=== PATIENT | male | born 1995 | race Caucasian/White ===

== ENCOUNTER 2018-11-11 09:13 | Emergency (ER) | payer BC ==
[2018-11-11] MEDS ORDERED: Ondansetron 4 MG Tab.DIS PO ONE (09:58)
[2018-11-11] MEDS ORDERED: Alum Hydrox/Mag Hydrox/Simeth 30 ML, Lidocaine 2% 15 ML PO ONE ×2 (09:59)
[2018-11-11] MEDS ORDERED: Famotidine 20 MG Tab PO ONE (09:59)
--- NOTE | 2018-11-11 10:06 | EDM.PDOC ---
ED HPI GENERAL MEDICAL PROBLEM - General Chief Complaint: Abdominal Pain Stated Complaint: VOMITING BLOOD Time Seen by Provider: 11/11/18 09:40 Source of Information: Reports: Patient History Limitations: Reports: No Limitations - History of Present Illness INITIAL COMMENTS - FREE TEXT/NARRATIVE: 23 yo M with h/o acid reflux, HTN, hemorrhoids comes in today with complaints of dull RUQ abdominal pain with vomiting "straight blood" this AM. He states he has been out drinking with his friends for the past 3 days, about 2-4 drinks per night. In the past he's had similar symptoms "just not as much blood" every time he drinks. He states he drinks "socially", about 2-4x/week, 2-4 drinks at a time. He has chronic gastric reflux, takes TUMS daily, but has not been diagnosed with GERD as he has not had an endoscopy. Was told in the past he " may have an ulcer" but he never followed up. He states his pain is worse with alcohol and when he eats. He describes the pain as a throbbing RUQ pain that radiates to the epigastric region. He also c/o sore throat and cough (chronic). He denies F/C, diarrhea (did have for 2 days recently), hematochezia, black tarry stool, or other GI/ complaints. He smokes 1/2-1ppd x14 years. Denies illicit drug use. No previous abdominal surgeries. Currently does not have a PCP, would like a recommendation. Abdomen Pain Score (Numeric/FACES): 5 - Related Data Allergies Allergy/AdvReac Type Severity Reaction Status Date / Time No Known Allergies Allergy Verified 11/11/18 09:40 Home Meds: Home Meds Omeprazole 20 mg PO DAILY #14 tab.rap 11/11/18 [Rx] Past Medical History - Past Health History Medical/Surgical History: Denies Medical/Surgical History Social & Family History - Tobacco Use Smoking Status *Q: Current Every Day Smoker Years of Tobacco use: 5 Packs/Tins Daily: 0.7 - Caffeine Use Caffeine Use: Reports: Coffee, Energy Drinks, Soda, Tea - Recreational Drug Use Recreational Drug Use: No ED ROS GENERAL - Review of Systems Review Of Systems: See Below Constitutional: Reports: No Symptoms. Denies: Fever, Chills HEENT: Reports: Glasses Respiratory: Reports: Cough (chronic "smoker's cough") Cardiovascular: Reports: Blood Pressure Problem. Denies: Chest Pain Endocrine: Reports: No Symptoms GI/Abdominal: Reports: Abdominal Pain (RUQ dull, throbbing radiates to epigastric region), Hematemesis, Nausea, Vomiting. Denies: Black Stool, Bloody Stool, Diarrhea, Decreased Appetite, Hematochezia, Melena : Reports: No Symptoms Musculoskeletal: Reports: No Symptoms Skin: Reports: No Symptoms Neurological: Reports: No Symptoms. Denies: Dizziness Psychiatric: Reports: No Symptoms Hematologic/Lymphatic: Reports: No Symptoms Immunologic: Reports: No Symptoms ED EXAM, GI/ABD - Physical Exam Exam: See Below Exam Limited By: No Limitations General Appearance: Alert, WD/WN, Mild Distress Eyes: Bilateral: Normal Appearance, EOMI Ears: Normal External Exam, Hearing Grossly Normal Nose: Normal Inspection, Normal Mucosa, No Blood Throat/Mouth: Normal Lips, Normal Teeth, Normal Gums, Normal Oropharynx, Normal Voice, No Airway Compromise, Inflammation, Other (some erythema present) Head: Atraumatic, Normocephalic Neck: Normal Inspection, Supple, Non-Tender, Full Range of Motion Respiratory/Chest: No Respiratory Distress, Lungs Clear, Normal Breath Sounds, No Accessory Muscle Use, Chest Non-Tender Cardiovascular: Regular Rate, Rhythm, No Edema, No Gallop, No JVD, No Murmur GI/Abdominal Exam: Soft, Non-Tender, No Organomegaly, No Distention, No Abnormal Bruit, No Mass, Pelvis Stable, Abnormal Bowel Sounds (hyperactive) Back Exam: Normal Inspection, Full Range of Motion Psychiatric: Normal Affect, Normal Mood Skin Exam: Warm, Dry, Intact, Normal Color, No Rash Course - Vital Signs Last Recorded V/S: Last Vital Signs Temp 99.0 F 11/11/18 09:35 Pulse 87 11/11/18 09:35 Resp 16 11/11/18 09:35 BP 166/105 H 11/11/18 09:35 Pulse Ox 97 11/11/18 09:35 - Orders/Labs/Meds Labs: Laboratory Tests 11/11/18 11/11/18 11/11/18 Range/Units 10:34 10:34 10:34 WBC 14.41 H (4.23-9.07) K/mm3 RBC 5.61 (4.63-6.08) M/mm3 Hgb 18.3 H (13.7-17.5) gm/L Hct 51.0 (40.1-51.0) % MCV 90.9 (79.0-92.2) fl MCH 32.6 H (25.7-32.2) pg MCHC 35.9 H (32.2-35.5) g/dl RDW Std Deviation 45.2 H (35.1-43.9) fL Plt Count 268 (163-337) K/mm3 MPV 10.4 (9.4-12.3) fl Neut % (Auto) 81.5 H (34.0-67.9) % Lymph % (Auto) 12.5 L (21.8-53.1) % [place] % (Auto) 4.7 L (5.3-12.2) % Eos % (Auto) 0.1 L (0.8-7.0) Baso % (Auto) 0.4 (0.1-1.2) % Neut # (Auto) 11.75 H (1.78-5.38) K/mm3 Lymph # (Auto) 1.80 (1.32-3.57) K/mm3 [place] # (Auto) 0.68 (0.30-0.82) K/mm3 Eos # (Auto) 0.01 L (0.04-0.54) K/mm3 Baso # (Auto) 0.06 (0.01-0.08) K/mm3 Manual Slide Review Abnormal smear Sodium 140 (136-145) mEq/L Potassium 4.0 (3.5-5.1) mEq/L Chloride 103 (98-107) mEq/L Carbon Dioxide 24 (21-32) mEq/L Anion Gap 17.0 H (5-15) BUN 15 (7-18) mg/dL Creatinine 1.2 (0.7-1.3) mg/dL Est Cr Clr Drug Dosing 103.29 mL/min Estimated GFR (MDRD) > 60 (>60) mL/min BUN/Creatinine Ratio 12.5 L (14-18) Glucose 102 (74-106) mg/dL Calcium 10.1 (8.5-10.1) mg/dL Total Bilirubin 0.6 (0.2-1.0) mg/dL AST 31 (15-37) U/L ALT 68 H (16-63) U/L Alkaline Phosphatase 63 (46-116) U/L C-Reactive Protein < 0.2 (<1.0) mg/dL Total Protein 8.2 (6.4-8.2) g/dl Albumin 4.3 (3.4-5.0) g/dl Globulin 3.9 gm/dL Albumin/Globulin Ratio 1.1 (1-2) Lipase 101 (73-393) U/L H. pylori IgG Antibody Negative (NEGATIVE) Meds: Medications Discontinued Medications Generic Name Dose Route Start Last Admin Trade Name Freq PRN Reason Stop Dose Admin Al Hydroxide/Mg Hydroxide 30 0 ml 11/11/18 09:59 11/11/18 10:40 ml/ Lidocaine HCl 15 ml PO 11/11/18 10:00 45 ml ONETIME ONE Administration Famotidine 20 mg 11/11/18 09:59 11/11/18 10:40 Pepcid PO 11/11/18 10:00 20 mg ONETIME ONE Administration Ondansetron HCl 4 mg 11/11/18 09:58 11/11/18 10:40 Zofran Odt PO 11/11/18 09:59 4 mg ONETIME ONE Administration - Re-Assessments/Exams Free Text/Narrative Re-Assessment/Exam: 11/11/18 9:58 Ordered CBC, CMP, CRP, Lipase, H pylori Zofran 4mg PO, Pepcid and GI Cocktail for relief of symptoms 11/11/18 11:06 CBC impressive for WBC 14.41, Hgb 18.3. Not anemic at this time, likely stress response causing the elevated WBC as he has no other sick symptoms at this time. H pylori negative. 11/11/18 11:47 CMP impressive for AGap 17 and ALT 68. Offered IVF, but pt does not want at this time. Will drink water at home with Zofran. At this time pt is stable and not anemic, so will send home with close follow up with PCP and General surgeon for endoscopy. Will send home with prescription for Omeprazole x 14 days. Recommend quitting smoking, avoiding alcohol and acidic food. Departure - Departure Time of Disposition: 11:53 Disposition: Home, Self-Care 01 Condition: Fair Clinical Impression: Peptic ulcer, Hematemesis with nausea - Discharge Information *PRESCRIPTION DRUG MONITORING PROGRAM REVIEWED*: Not Applicable *COPY OF PRESCRIPTION DRUG MONITORING REPORT IN PATIENT KARIN: Not Applicable Prescriptions: Omeprazole 20 mg PO DAILY #14 tab. Instructions: Steps to Quit Smoking, [id number], Peptic Ulcer, [id number], Peptic Ulcer Eating Plan Referrals: Aguilar Raya PA [Physician Route Sales Person] - Jesus-Shilpa Alarcon MD [Physician] - Forms: ED Department Discharge Additional Instructions: You were seen in the ED today for abdominal pain with vomiting blood. At this time, your work up, physical exam and history suggest that you likely have a peptic ulcer. You will be given an acid-reducing medication to take for about 2 weeks. Recommend follow up with a general surgeon for endoscopy within the next week, you can make an appointment with Dr. Lee at [place] by calling . You likely also have GERD with your history of chronic acid reflux and TUMS use, which can also be diagnosed with endoscopy. Also recommend follow up with a primary care provider, recommend Aguilar Raya PA-C, you can make an appointment by calling . At this time, it is very important you avoid spicy/citrus foods, ibuprofen, alcohol to help stop your symptoms. Please return to ED if new or worsening symptoms.
== END 2018-11-11 12:20 | disposition home or self-care (01) ==
LOC: JD.ED 09:13
DX: K27.9 Peptic ulcer, site unspecified, unspecified as acute or chronic, without hemorrhage or perforation (principal); K92.0 Hematemesis; F17.210 Nicotine dependence, cigarettes, uncomplicated; Z79.899 Other long term (current) drug therapy
CPT/HCPCS: 36415; 80053; 83690; 85025; 86140; 86677; 99284; A9270

== ENCOUNTER 2020-03-29 16:10 | Emergency (ER) | payer SELFPAY ==
--- NOTE | 2020-03-29 18:48 | EDM.PDOC ---
ED HPI GENERAL MEDICAL PROBLEM - General Chief Complaint: Chest Pain Stated Complaint: HIGH BP Time Seen by Provider: 03/29/20 16:45 Source of Information: Reports: Patient History Limitations: Reports: No Limitations - History of Present Illness INITIAL COMMENTS - FREE TEXT/NARRATIVE: The patient presents with chest pain. This started this morning. The pain comes and goes. He has a history of chest pain and left shoulder pain. He injured his shoulder years ago. He has no shortness of breath. He has no abdominal pain, nausea, vomiting or diarrhea. He does have a history of hypertension and he was on some meds but he quit taking them over the past year. Onset: Gradual Duration: Hour(s): Location: Reports: Chest Quality: Reports: Sharp Severity: Moderate Improves with: Reports: None Worsens with: Reports: None Associated Symptoms: Reports: Chest Pain Left Upper Chest Pain Score (Numeric/FACES): 8 - Related Data Allergies Allergy/AdvReac Type Severity Reaction Status Date / Time No Known Allergies Allergy Verified 11/11/18 09:40 Home Meds: Home Meds Omeprazole 20 mg PO DAILY #14 tab.rap. 11/11/18 [Rx] Omeprazole 20 mg PO DAILY #30 tablet. 03/29/20 [Rx] lisinopriL [Lisinopril] 20 mg PO DAILY #30 tablet 03/29/20 [Rx] Past Medical History - Past Health History Medical/Surgical History: Denies Medical/Surgical History Social & Family History - Caffeine Use Caffeine Use: Reports: Coffee, Energy Drinks, Soda, Tea ED ROS GENERAL - Review of Systems Review Of Systems: See Below Constitutional: Reports: No Symptoms HEENT: Reports: No Symptoms Respiratory: Reports: No Symptoms Cardiovascular: Reports: Chest Pain Endocrine: Reports: No Symptoms GI/Abdominal: Reports: No Symptoms : Reports: No Symptoms Musculoskeletal: Reports: No Symptoms ED EXAM, GENERAL - Physical Exam Exam: See Below Exam Limited By: No Limitations General Appearance: Alert, No Apparent Distress Ears: Normal External Exam Nose: Normal Inspection Head: Atraumatic, Normocephalic Neck: Normal Inspection Respiratory/Chest: No Respiratory Distress, Lungs Clear, Normal Breath Sounds Cardiovascular: Regular Rate, Rhythm, No Edema, No Murmur GI/Abdominal: Soft, Non-Tender, No Organomegaly, No Mass Back Exam: Normal Inspection Extremities: Normal Inspection Neurological: Alert, Oriented, No Motor/Sensory Deficits EKG INTERPRETATION EKG Date: 03/29/20 Time: 16:47 Rhythm: NSR Rate (Beats/Min): 90 [place]: Normal P-Wave: Present QRS: Normal ST-T: Normal QT: Normal Course - Vital Signs Last Recorded V/S: Last Vital Signs Temp 97.0 F 03/29/20 17:08 Pulse 95 03/29/20 17:08 Resp 18 03/29/20 17:08 BP 166/118 H 03/29/20 17:08 Pulse Ox 94 L 03/29/20 17:08 - Orders/Labs/Meds Orders: Active Orders 24 hr Category Date Time Status Cardiac Monitoring [RC] . DIRECTED Care 03/29/20 16:58 Active EKG Documentation Completion [RC] STAT Care 03/29/20 16:59 Active Chest 2V [CR] Stat Exams 03/29/20 16:59 Taken Labs: Laboratory Tests 03/29/20 03/29/20 Range/Units 17:27 17:27 WBC 8.77 (4.23-9.07) K/mm3 RBC 4.74 (4.63-6.08) M/mm3 Hgb 15.6 D (13.7-17.5) gm/dl Hct 44.2 (40.1-51.0) % MCV 93.2 H (79.0-92.2) fl MCH 32.9 H (25.7-32.2) pg MCHC 35.3 (32.2-35.5) g/dl RDW Std Deviation 44.1 H (35.1-43.9) fL Plt Count 193 D (163-337) K/mm3 MPV 10.0 (9.4-12.3) fl Neut % (Auto) 61.4 (34.0-67.9) % Lymph % (Auto) 28.4 (21.8-53.1) % [place] % (Auto) 7.3 (5.3-12.2) % Eos % (Auto) 1.9 (0.8-7.0) Baso % (Auto) 0.3 (0.1-1.2) % Neut # (Auto) 5.38 (1.78-5.38) K/mm3 Lymph # (Auto) 2.49 (1.32-3.57) K/mm3 [place] # (Auto) 0.64 (0.30-0.82) K/mm3 Eos # (Auto) 0.17 (0.04-0.54) K/mm3 Baso # (Auto) 0.03 (0.01-0.08) K/mm3 Sodium 135 L (136-145) mEq/L Potassium 3.1 L (3.5-5.1) mEq/L Chloride 99 (98-107) mEq/L Carbon Dioxide 23 (21-32) mEq/L Anion Gap 16.1 H (5-15) BUN 17 (7-18) mg/dL Creatinine 1.1 (0.7-1.3) mg/dL Est Cr Clr Drug Dosing 110.72 mL/min Estimated GFR (MDRD) > 60 (>60) mL/min BUN/Creatinine Ratio 15.5 (14-18) Glucose 135 H (74-106) mg/dL Calcium 8.2 L D (8.5-10.1) mg/dL Total Bilirubin 0.4 (0.2-1.0) mg/dL AST 37 (15-37) U/L ALT 75 H (16-63) U/L Alkaline Phosphatase 70 (46-116) U/L Troponin I < 0.017 (0.00-0.056) ng/mL Total Protein 7.0 (6.4-8.2) g/dl Albumin 3.6 (3.4-5.0) g/dl Globulin 3.4 gm/dL Albumin/Globulin Ratio 1.1 (1-2) - Re-Assessments/Exams Free Text/Narrative Re-Assessment/Exam: 03/29/20 18:42 I ordered an EKG, CXR and labs. His EKG shows a NSR with no acute changes. His CXR looks good. His CBC looks good. His potassium was a little low. His troponin is negative. Departure - Departure Time of Disposition: 18:45 Disposition: Home, Self-Care 01 Condition: Good Clinical Impression: Atypical chest pain Hypertension Qualifiers: Hypertension type: essential hypertension Qualified Code(s): I10 - Essential (primary) hypertension Prescriptions: lisinopriL [Lisinopril] 20 mg PO DAILY #30 tablet Omeprazole 20 mg PO DAILY #30 tablet. Referrals: Latisha Hernandez, PADebbiC [Primary Care Provider] - 1 Week Additional Instructions: Take the medication as prescribed. Follow up with your provider within a week. Please return if you are worse. Sepsis Event Note (ED) - Evaluation Sepsis Screening Result: No Definite Risk - Focused Exam Vital Signs: Vital Signs Temp Pulse Resp BP Pulse Ox 03/29/20 17:08 97.0 F 95 18 166/118 H 94 L - My Orders Last 24 Hours: My Active Orders 03/29/20 16:58 Cardiac Monitoring [RC] . DIRECTED 03/29/20 16:59 EKG Documentation Completion [RC] STAT Chest 2V [CR] Stat - Assessment/Plan Last 24 Hours: My Active Orders 03/29/20 16:58 Cardiac Monitoring [RC] . DIRECTED 03/29/20 16:59 EKG Documentation Completion [RC] STAT Chest 2V [CR] Stat
--- NOTE | 2020-03-30 09:26 | CR ---
Chest: 2 views of the chest were obtained. Comparison: No prior chest imaging is available. Heart size and mediastinum are within normal limits. Lungs are clear with no acute parenchymal change. Bony structures appear unremarkable. Impression: 1. Nothing acute is appreciated on 2 view chest x-ray. Diagnostic code #1 This report was dictated in MDT
== END 2020-03-29 19:35 | disposition home or self-care (01) ==
LOC: JD.ED 16:10
DX: I10 Essential (primary) hypertension (principal); R07.89 Other chest pain
CPT/HCPCS: 36415; 71046; 71046-26; 80053; 84484; 85025; 93005; 93010; 99283; 99285-25

== ENCOUNTER 2021-06-22 13:47 | Emergency (ER) | payer SELFPAY ==
--- NOTE | 2021-06-22 14:35 | EDM.PDOC ---
ED HPI GENERAL MEDICAL PROBLEM - General Chief Complaint: Neurological Problem Stated Complaint: SEIZURE YESTERDAY Time Seen by Provider: 06/22/21 13:59 Source of Information: Reports: Patient, Family, RN Notes Reviewed History Limitations: Reports: No Limitations - History of Present Illness INITIAL COMMENTS - FREE TEXT/NARRATIVE: Patient is a 26-year-old male presenting to the emergency department for evaluation after experiencing tonic-clonic seizure yesterday. Patient reports that he was in his car at work around 4 PM when a coworker witnessed him have a tonic-clonic seizure. He is unsure how long it lasted as the onset was unwitnessed. Reports after the event he was bleeding from his mouth due to biting his tongue and felt very tired and sore all over his body. He did not lose control of bowel or bladder. Patient reports any known seizure disorder, however states when he was 16 he did have a similar episode after using acid. Mother reports that as a child, he would have episodes where he would stare off. She describes it like he passed out with his eyes open. Patient reports being an alcoholic and that he will drink a half a liter to a liter of vodka daily. He stopped drinking 4 days ago. For the first 2 days he felt shaky, nauseous and had diarrhea. States that yesterday prior to having the seizure he was feeling well. At this time, he complains of pain to all of his muscles and joints as well as some swelling and pain to his tongue. Otherwise he feels well. He has never gone undergone alcohol treatment, but is open to doing so. Generalized Pain Score (Numeric/FACES): 8 - Related Data Allergies Allergy/AdvReac Type Severity Reaction Status Date / Time No Known Allergies Allergy Verified 11/11/18 09:40 Home Meds: Home Meds Omeprazole 20 mg PO DAILY #30 tablet. 03/29/20 [Rx] lisinopriL [Lisinopril] 20 mg PO DAILY #30 tablet 03/29/20 [Rx] PARoxetine [Paxil] 20 mg PO DAILY 06/22/21 [History] Past Medical History - Past Health History Medical/Surgical History: Denies Medical/Surgical History Cardiovascular History: Reports: Hypertension Gastrointestinal History: Reports: GERD Psychiatric History: Reports: Anxiety, Depression - Infectious Disease History Infectious Disease History: Reports: None Social & Family History - Tobacco Use Tobacco Use Status *Q: Current Every Day Tobacco User Years of Tobacco use: 14 Packs/Tins Daily: 0.5 - Caffeine Use Caffeine Use: Reports: Coffee, Energy Drinks, Soda, Tea ED ROS GENERAL - Review of Systems Review Of Systems: Comprehensive ROS is negative, except as noted in HPI. - Physical Exam Exam: See Below Exam Limited By: No Limitations General Appearance: Alert, WD/WN, No Apparent Distress Eye Exam: Bilateral Eye: PERRL Throat/Mouth: Normal Inspection, Normal Lips, Normal Teeth, Normal Gums, Normal Oropharynx, Normal Voice, No Airway Compromise, Evidence of Tongue Biting (bilateral tongue) Head Exam: Atraumatic, Normocephalic Respiratory/Chest: No Respiratory Distress, Lungs Clear, Normal Breath Sounds, No Accessory Muscle Use, Chest Non-Tender Cardiovascular: Normal Peripheral Pulses, Regular Rate, Rhythm, No Edema, No Gallop, No JVD, No Murmur, No Rub GI/Abdominal: Normal Bowel Sounds, Soft, Non-Tender, No Organomegaly, No Distention, No Abnormal Bruit, No Mass Neuro Exam (Abbreviated): Alert, Oriented, CN II-XII Intact, Normal Cognition, Normal Gait, Normal Reflexes, No Motor/Sensory Deficits Psychiatric: Normal Affect, Normal Mood Skin Exam: Warm, Dry, Intact, Normal Color, No Rash Course - Vital Signs Last Recorded V/S: Last Vital Signs Temp 98.2 F 06/22/21 14:29 Pulse 87 06/22/21 14:29 Resp 20 06/22/21 14:29 BP 195/130 H 06/22/21 14:29 Pulse Ox 98 06/22/21 14:29 - Orders/Labs/Meds Labs: Laboratory Tests 06/22/21 06/22/21 06/22/21 Range/Units 14:30 14:30 14:30 WBC 9.65 H (4.23-9.07) K/mm3 RBC 4.86 (4.63-6.08) M/mm3 Hgb 16.8 (13.7-17.5) gm/dl Hct 47.9 (40.1-51.0) % MCV 98.6 H D (79.0-92.2) fl MCH 34.6 H (25.7-32.2) pg MCHC 35.1 (32.2-35.5) g/dl RDW Std Deviation 49.9 H (35.1-43.9) fL Plt Count 138 L (163-337) K/mm3 MPV 10.3 (9.4-12.3) fl Neut % (Auto) 68.2 H (34.0-67.9) % Lymph % (Auto) 22.2 (21.8-53.1) % Day % (Auto) 6.8 (5.3-12.2) % Eos % (Auto) 2.2 (0.8-7.0) Baso % (Auto) 0.2 (0.1-1.2) % Neut # (Auto) 6.58 H (1.78-5.38) K/mm3 Lymph # (Auto) 2.14 (1.32-3.57) K/mm3 Day # (Auto) 0.66 (0.30-0.82) K/mm3 Eos # (Auto) 0.21 (0.04-0.54) K/mm3 Baso # (Auto) 0.02 (0.01-0.08) K/mm3 Sodium 138 (136-145) mEq/L Potassium 3.3 L (3.5-5.1) mEq/L Chloride 100 (98-107) mEq/L Carbon Dioxide 24 (21-32) mEq/L Anion Gap 17.3 H (5-15) BUN 10 (7-18) mg/dL Creatinine 0.7 (0.7-1.3) mg/dL Est Cr Clr Drug Dosing 172.44 mL/min Estimated GFR (MDRD) > 60 (>60) mL/min BUN/Creatinine Ratio 14.3 (14-18) Glucose 94 (70-99) mg/dL Lactic Acid 0.6 (0.4-2.0) mmol/L Calcium 8.9 (8.5-10.1) mg/dL Magnesium 1.9 (1.8-2.4) mg/dL Total Bilirubin 1.2 H (0.2-1.0) mg/dL AST 226 H (15-37) U/L ALT 233 H (16-63) U/L Alkaline Phosphatase 72 (46-116) U/L C-Reactive Protein 6.7 H* (<1.0) mg/dL Total Protein 7.9 (6.4-8.2) g/dl Albumin 4.0 (3.4-5.0) g/dl Globulin 3.9 gm/dL Albumin/Globulin Ratio 1.0 (1-2) - Re-Assessments/Exams Free Text/Narrative Re-Assessment/Exam: Patient is a 26-year-old male presenting to the emergency department for evaluation after tonic-clonic seizure yesterday. He has a history of heavy alcohol consumption and states that he stopped 4 days ago. Experienced withdrawal symptoms for the first 2 days but was feeling pretty well before having his seizure yesterday. Denies any known seizure disorder, but does have a history of what sounds like possible absent seizures as well as a tonic-clonic seizure at 16 after using acid. Exam is unremarkable with the exception of lacerations to the bilateral aspects of his tongue. There is no active bleeding. I have ordered blood work and CT scan of the head. 06/22/21 15:40 Hematology is significant for WBC minimally elevated 9.65, potassium 3.3, and gap 17.3, bilirubin 1.2, AST 226, ALT 233, CRP 6.7. Lactic acid is normal. His case was discussed with the neurologist on-call at [facility], Dr. Huynh. He recommended we order outpatient EEG and MRI of the brain with and without contrast and have results forwarded to [facility]. He should then follow-up outpatient with [facility] in [place]. Results discussed with patient. Discussed that his liver enzymes are elevated likely related to chronic alcohol use. Recommend that he continue to abstain from alcohol. Also discussed that he cannot drive until he is seizure-free for 6 months. Provided information on [facility] for alcohol treatment. Blood pressure was elevated 195/130 on arrival to ER. Repeat blood pressure was 169/114. Recommend he monitor his blood pressures at home and follow-up with primary care as scheduled on Saturday. Discharge instructions as document. Departure - Departure Time of Disposition: 15:39 Disposition: Home, Self-Care 01 Condition: Good Clinical Impression: Seizure - Discharge Information *PRESCRIPTION DRUG MONITORING PROGRAM REVIEWED*: No *COPY OF PRESCRIPTION DRUG MONITORING REPORT IN PATIENT KARIN: No Instructions: Seizure, Adult Referrals: Latisha Hernandez PA-C [Primary Care Provider] - Clay Huynh MD [Ordering Only Provider] - Forms: ED Department Discharge Additional Instructions: Abstain from alcohol use. Contact [facility] to arrange for outpatient alcohol treatment. You may also present there at 8 AM any day of the week for open intake. Check your blood pressures periodically at home and keep a log of these to take to your appointment on Saturday with your primary care provider. Call [facility] in [place] to set up a follow-up appointment. The radiology department will be in contact with you to schedule your outpatient EEG and MRI. Do not drive until seizure-free for 6 months. Return to ER for recurrence of seizure or any other concerning symptoms. Sepsis Event Note (ED) - Focused Exam Vital Signs: Vital Signs Temp Pulse Resp BP Pulse Ox 06/22/21 14:29 98.2 F 87 20 195/130 H 98
--- NOTE | 2021-06-22 14:54 | CT ---
Head CT Technique: Multiple axial sections through the brain were obtained. Intravenous contrast was not utilized. Reconstructed coronal and sagittal images were obtained. Comparison: No prior intracranial imaging is available. Findings: Ventricles along the basal cisterns and sulci over the convexities are within normal limits for the patient's age. No abnormal parenchymal densities are seen. No evidence of intracranial hemorrhage is appreciated. No midline shift or mass-effect is seen. Visualized paranasal sinuses and mastoid sinuses show nothing acute. No acute calvarial finding is seen. Impression: 1. No abnormality is identified on noncontrast CT study of the brain. Diagnostic code #1
== END 2021-06-22 16:03 | disposition home or self-care (01) ==
LOC: JD.ED 13:47
DX: R56.9 Unspecified convulsions (principal); I10 Essential (primary) hypertension; K21.9 Gastro-esophageal reflux disease without esophagitis; Z79.899 Other long term (current) drug therapy; Z72.0 Tobacco use
CPT/HCPCS: 36415; 70450; 70450-26; 80053; 83605; 83735; 85025; 86140; 99284; 99285-25

== ENCOUNTER 2021-12-14 15:11 | Emergency (ER) | payer MEDICAID ==
[2021-12-14] MEDS ORDERED: Sodium Chloride 0.9% 1,000 ML IV STA ×2 (15:27→17:23)
[2021-12-14 16:23] LABS: ACETAMINOPHEN 0 ug/mL (10-30)
== END 2021-12-14 20:26 | disposition home or self-care (01) ==
LOC: JD.ED 15:11
DX: F10.129 Alcohol abuse with intoxication, unspecified (principal); I10 Essential (primary) hypertension; K21.9 Gastro-esophageal reflux disease without esophagitis; Z79.899 Other long term (current) drug therapy; Y90.1 Blood alcohol level of 20-39 mg/100 ml
CPT/HCPCS: 36415; 80053; 80143; 80179; 80306; 80307; 84443; 85007; 85027; 93005; 99284; J7030

== ENCOUNTER 2022-10-25 05:55 | Emergency (ER) | payer MEDICAID ==
[2022-10-25 06:57] LABS: ESTIMATED GFR 84 mL/min (>60)
[2022-10-25] MEDS ORDERED: Potassium Chloride 20 MEQ Tab.ER PO ONE (07:11)
== END 2022-10-25 07:27 | disposition home or self-care (01) ==
LOC: JD.ED 05:55
DX: R41.0 Disorientation, unspecified (principal); E87.6 Hypokalemia; K21.9 Gastro-esophageal reflux disease without esophagitis; I10 Essential (primary) hypertension; Z79.899 Other long term (current) drug therapy; Z72.0 Tobacco use
CPT/HCPCS: 36415; 80053; 80307; 85025; 99284; A9270; 99283

== ENCOUNTER 2023-03-15 12:47 | Emergency (ER) | payer MEDICAID ==
[2023-03-15] MEDS ORDERED: Ondansetron 4 MG/2 ML SDV IVPUSH ONE (13:07)
[2023-03-15] MEDS ORDERED: Sodium Chloride 0.9% 10 ML Syringe FLUSH PRN (13:07)
[2023-03-15] MEDS ORDERED: LORazepam 2 MG/ML SDV IVPUSH ONE (13:08)
[2023-03-15] MEDS ORDERED: Sodium Chloride 0.9% 1,000 ML IV SCH (13:15)
[2023-03-15 13:34] LABS: BASOPHILS ABSOLUTE AUTO 0.02 K/mm3 (0.01-0.08); BASOPHILS PERCENT AUTO 0.2 % (0.1-1.2); EOSINOPHILS ABSOLUTE AUTO 0.05 K/mm3 (0.04-0.54); EOSINOPHILS PERCENT AUTO 0.6 (0.8-7.0); HEMATOCRIT 48.8 % (40.1-51.0); HEMOGLOBIN 17.8 gm/dl (13.7-17.5); IMMATURE GRAN ABSOLUTE AUTO 0.06 K/mm3 (0.00-0.10); IMMATURE GRAN PERCENT AUTO 0.7 % (<=1.0); LYMPHOCYTES ABSOLUTE AUTO 2.19 K/mm3 (1.32-3.57); LYMPHOCYTES PERCENT AUTO 24.5 % (21.8-53.1); MEAN CORPUSCULAR HEMOGLOBIN 33.1 pg (25.7-32.2); MEAN CORPUSCULAR HGB CONC 36.5 g/dl (32.2-35.5); MEAN PLATELET VOLUME 10.4 fl (9.4-12.3); MONOCYTES ABSOLUTE AUTO 0.77 K/mm3 (0.30-0.82); MONOCYTES PERCENT AUTO 8.6 % (5.3-12.2); NEUTROPHILS ABSOLUTE AUTO 5.84 K/mm3 (1.78-5.38); NEUTROPHILS PERCENT AUTO 65.4 % (34.0-67.9); PLATELET COUNT,PLT 174 K/mm3 (163-337); RED BLOOD CELL COUNT 5.38 M/mm3 (4.63-6.08); WHITE BLOOD CELL COUNT,WBC 8.93 K/mm3 (4.23-9.07)
[2023-03-15 13:36] LABS: MEAN CORPUSCULAR VOLUME 90.7 fl (79.0-92.2)
[2023-03-15 13:51] LABS: A/G RATIO 1.3 (1-2); ALBUMIN 4.5 g/dl (3.4-5.0); ANION GAP 22.3 (5-15); BILIRUBIN TOTAL 1.6 mg/dL (0.2-1.0); CALCIUM 9.8 mg/dL (8.5-10.1); CREATININE 1.7 mg/dL (0.7-1.3); EST CRCL DRUG DOSING (CG) 69.74 mL/min; MAGNESIUM 1.5 mg/dL (1.8-2.4); POTASSIUM,K 3.3 mEq/L (3.5-5.1); PROTEIN TOTAL,TP 8.1 g/dl (6.4-8.2)
== END 2023-03-15 14:22 | disposition home or self-care (01) ==
LOC: JD.ED 12:47
DX: F10.239 Alcohol dependence with withdrawal, unspecified (principal); Y90.0 Blood alcohol level of less than 20 mg/100 ml; R56.9 Unspecified convulsions; I10 Essential (primary) hypertension; K21.9 Gastro-esophageal reflux disease without esophagitis; Z79.899 Other long term (current) drug therapy
CPT/HCPCS: 36415; 80053; 80307; 83690; 83735; 85025; 96361; 96374; 96375; 99284; J2060; J2405; J3490; J7030

== ENCOUNTER 2025-02-01 06:39 | Emergency (ER) | payer SELFPAY ==
[2025-02-01] MEDS: Ondansetron 4 MG Tab.DIS PO ONE (07:38)
[2025-02-01] MEDS: chlordiazePOXIDE 25 MG Cap PO ONE (07:38)
== END 2025-02-01 07:50 | disposition home or self-care (01) ==
LOC: JD.ED 06:39
DX: F10.239 Alcohol dependence with withdrawal, unspecified (principal); I10 Essential (primary) hypertension
CPT/HCPCS: 99283; A9270